=== PATIENT | female | born 1970 | race Caucasian/White ===

== ENCOUNTER 2016-09-26 05:29 | Day surgery (SDC) | payer BC ==
[~2016-09-26] VITALS: Ht 167.6 cm; Wt 100.0 kg
[~2016-09-26 05:29] MED LIST: LEVEMIR FL100 UNIT/1 SC; LIPITOR10 MG PO; LIPITOR20 MG PO; NOVOLOG MI100 UNIT/2 SC; PRINIVIL10 MG PO; ZESTRIL2.5 MG PO; ZOVIRAX800 M1 PO
[2016-09-26 05:58] VITALS: BP 124/75
[2016-09-26 06:50] LABS: POINT-OF-CARE METER ID UU13113694; POINT-OF-CARE USER ID AHSRSCSLC11
[2016-09-26 09:16] LABS: POINT-OF-CARE METER ID UU13113675
[2016-09-26 09:56] VITALS: BP 120/80
[2016-09-26 10:40] VITALS: BP 130/65
[2016-09-26 11:07] LABS: INTERNAL CONTROL VALID? YES
== END 2016-09-26 10:52 | disposition home or self-care (01) ==
LOC: SDC
PROVIDERS: Obstetrics & Gynecology
DX: N94.6 Dysmenorrhea, unspecified (principal); N92.0 Excessive and frequent menstruation with regular cycle; N80.0 Endometriosis of uterus; E11.9 Type 2 diabetes mellitus without complications; Z79.4 Long term (current) use of insulin; Z87.891 Personal history of nicotine dependence; Z80.3 Family history of malignant neoplasm of breast; Z80.41 Family history of malignant neoplasm of ovary; Z82.49 Family history of ischemic heart disease and other diseases of the circulatory system; Z83.3 Family history of diabetes mellitus; Z80.6 Family history of leukemia
CPT/HCPCS: 82948; 84703; 88307; J0330; J0690; J1100; J1170; J1885; J2250; J2405; J2710; J2765; J3010